=== PATIENT | female | born 2000 | race Caucasian/White ===

== ENCOUNTER → 2024-04-11 12:13 | Outpatient (BNVA) | payer BC, SELFPAY | PROVIDERS: PCP Family Medicine; Visit Provider Internal Medicine Rheumatology | DX: Z79.899 Other long term (current) drug therapy (principal); M19.90 Unspecified osteoarthritis, unspecified site; R76.8 Other specified abnormal immunological findings in serum | CPT/HCPCS: 36415; 72040; 72072; 82306; 83520; 85651; 86140; 86160; 86162; 86200; 86235; 86255; 86376; 86800 ==